=== PATIENT | female | born 1985 | race Caucasian/White ===

== ENCOUNTER 2017-07-10 09:30 | Outpatient (CLI) | payer BC ==
--- NOTE | 2017-07-10 11:33 | CT ---
CT ABDOMEN AND PELVIS WITH IV AND ORAL CONTRAST: History: Abdominal pain. FINDINGS: Lung bases are clear. The liver, spleen, kidneys, adrenal glands, and pancreas have a normal CT appea eliseo. No enlarged lymph nodes or free fluid are apparent. Follicles arise from the ovaries. Contrace ptive device is apparent within the endometrial cavity. Appendix is not directly visualized. No infla mmation is apparent. IMPRESSION: No significant abnormalities are demonstrated. POS: [facility]
== END 2017-07-10 09:31 | disposition home or self-care (01) ==
LOC: SCSCT 09:30
PROVIDERS: ATTEND Family Medicine
DX: K44.0 Diaphragmatic hernia with obstruction, without gangrene (principal); R10.84 Generalized abdominal pain
CPT/HCPCS: 74177

== ENCOUNTER 2018-03-04 12:48 | Outpatient (CLI) | payer OTHER ==
--- NOTE | 2018-03-04 14:27 | MRI ---
NONCONTRAST ENHANCED MRI IMAGES OF THE LUMBAR SPINE: History: 32-year-old female with history of lumbar radiculopathy, M54.16. Technique: Multiplanar, multisequence noncontrast enhanced MRI images of the lumbar spine were obtained. 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 For the purposes of this dictation, the last freely mobile vertebral body will be considered to the L 5 vertebral body. All other vertebral bodies are numbered according to this. T12-L1, L1-2: Unremarkable. L2-3: Unremarkable. L3-4: Minimal facet hypertrophy seen. The central canal and neural foramen are patent. L4-5: There is a mild broad based disc bulge and minimal facet hypertrophy. The central canal and nicola ral foramen are patent. L5-S1: There is mild facet hypertrophy seen. Central canal and neural foramen are patent. IMPRESSION: No significant evidence of central stenosis or neural foraminal narrowing seen. POS: [facility]
== END 2018-03-04 12:49 | disposition home or self-care (01) ==
LOC: TBSIIMAG 12:48
PROVIDERS: ATTEND Neurological Surgery
DX: M54.16 Radiculopathy, lumbar region (principal)
CPT/HCPCS: 72148